=== PATIENT | male | born 1970 | race Caucasian/White ===

== ENCOUNTER 2019-07-26 11:52 | Emergency (ER) | payer OTHER ==
[~2019-07-26] VITALS: Ht 190.5 cm; Wt 92.0 kg
[~2019-07-26 11:52] MED LIST: BETA300T PO; HYDR200T71 PO; PHEN30CA PO; ZONI25CA25 PO
[2019-07-26] MEDS ORDERED: CONTRAST GIVEN MC PRN (12:30)
[2019-07-26] MEDS ORDERED: IOHEXOL 300 MG/ML 75 ML VIAL. IV ONE (12:30)
[2019-07-26 12:57] LABS: BASO # 0.1 x10^3/uL (0.0-0.2); BASO % 1 % (0-3); EOS # 0.1 x10^3/uL (0.0-0.7); EOS % 1 % (0-3); HEMATOCRIT 46.4 % (39.0-53.0); HEMOGLOBIN 15.6 g/dL (13.0-17.5); LYMPH # 0.7 x10^3/uL (1.0-4.8); LYMPH % 7 % (24-48); MEAN CORPUSCULAR HEMOGLOBIN 30 pg (25-35); MEAN CORPUSCULAR HGB CONC 34 g/dL (31-37); MEAN CORPUSCULAR VOLUME 89 fL (79-100); MONO # 1.2 x10^3/uL (0.0-1.1); MONO % 12 % (0-9); NEUT # 8.7 x10^3uL (1.8-7.7); NEUT % 81 % (31-73); PLATELET COUNT 220 x10^3/uL (140-400); RED CELL DISTRIBUTION WIDTH 13.5 % (11.5-14.5); WHITE BLOOD COUNT 10.8 x10^3/uL (4.0-11.0)
[2019-07-26 13:09] LABS: CALCIUM 9.3 mg/dL (8.5-10.1); CREATININE 0.9 mg/dL (0.7-1.3); POTASSIUM 3.6 mmol/L (3.5-5.1)
[2019-07-26 13:15] LABS: ALBUMIN/GLOBULIN RATIO 0.9 (1.0-1.7); TOTAL BILIRUBIN 0.3 mg/dL (0.2-1.0); TOTAL PROTEIN 8.3 g/dL (6.4-8.2)
--- NOTE | 2019-07-26 13:30 | RAD ---
Examination: CT SOFT TISSUE NECK W/CONTRAST History: Facial abscess Comparison/Correlation: 03/29/2012 CTA of the chest Findings: Axial images of the neck were obtained following IV contrast. Sagittal and coronal reformatted images were provided. Partially visualized paranasal sinuses and mastoid air cells are unremarkable. There is a phlegmon identified involving the left lateral pharyngeal space measuring 2.2 cm transverse by 1.1 cm anteroposterior by 1.6 longitudinal. It is best seen on axial image 21 of series 2, coronal image 27, and sagittal image 23. External auditory canals are unremarkable. There are small bilateral upper jugular chain lymph nodes. Bony structures are intact. Postoperative cervical spine intervertebral disc space material at C5-6 is present. Mild disc space narrowing at multiple levels of the cervical spine noted. Temporomandibular joints are intact. Transversely oriented pins or screws are present at the mandibular ramus bilaterally. Mild mucosal thickening of ethmoid air cells is noted. Minimal opacification of the right maxillary sinus noted. Fatty replacement of the submandibular and parotid glands is noted. Current false cords are stable and symmetric. Epiglottis is normal. Benign-appearing nodular involvement of the thyroid gland is present. Nonenlarged left level 2A lymph node is present with a short axis diameter of 0.7 cm. Foci of small groundglass opacities involving the lung apices is noted. The largest of these on the right on axial image 83-84 measuring up to 1.1 cm x 0.8 cm. Largest of these at the left is present adjacent to the superior mediastinum on axial images 78 through 87. This measures 2.6 longitudinal by 1.2 cm transverse by 1.8 cm anteroposterior. Solid component within the superomedial aspect of this measuring up to 0.9 cm x longitudinal 0.5 cm x 0.8 cm. Impression: Left lateral pharyngeal space phlegmon. Groundglass opacities involving upper lung mccartney are new since prior CTA of the chest dated 03/29/2012. Correlate for underlying infectious or other etiologies. Solid component within the largest of the left apical opacities is noted. Neoplastic involvement of this particular ground glass opacity is questioned considering its solid component warranting continued follow-up. Follow-up CT chest with contrast is recommended for more complete assessment of the lung mccartney. PQRS Compliance Statement: One or more of the following individualized dose reduction techniques were utilized for this examination: 1. Automated exposure control 2. Adjustment of the mA and/or kV according to patient size 3. Use of iterative reconstruction technique Electronically signed by: Andrea Sanches MD (07/26/2019 1:27 PM) [facility]
--- NOTE | 2019-07-26 13:52 | PHYS DOC ---
Past History Past Medical History: Other Additional Past Medical Histor: sjrogens, epilepsy Alcohol Use: None General Adult EDM: Chief Complaint: WEAKNESS/GENERALIZED HPI: HPI: Patient is a 49-year-old male with no significant past medical history who presents with a 1 to 2-week history of swelling behind his left jaw. He states he has been to his primary care physician a couple of times and been started on antibiotics. They thought that this may have just been swollen lymph node. He has noticed that it seems to be moving his jaw forward. The pain has increased on the left side of his face including his neck he states the pain stops at the midline. He has not had any difficulty swallowing does have some pain with chewing. He saw his primary care doctor again today and she sent him down here for further evaluation. [] Review of Systems: Review of Systems: Constitutional: Reports subjective fever at home Eyes: Denies change in visual acuity HENT: Denies nasal congestion swollen jaw left side Respiratory: Denies cough or shortness of breath Cardiovascular: Denies chest pain or edema GI: Denies abdominal pain, nausea, vomiting, bloody stools or diarrhea : Denies dysuria Musculoskeletal: Denies back pain or joint pain Integument: Denies rash Neurologic: Denies headache, focal weakness or sensory changes Endocrine: Denies polyuria or polydipsia Lymphatic: Reports swollen lymph nodes around his neck Psychiatric: Denies depression or anxiety Heart Score: Risk Factors: Risk Factors: DM, Current or recent (<one month) smoker, HTN, HLP, family history of CAD, obesity. Risk Scores: Score 0 - 3: 2.5% MACE over next 6 weeks - Discharge Home Score 4 - 6: 20.3% MACE over next 6 weeks - Admit for Clinical Observation Score 7 - 10: 72.7% MACE over next 6 weeks - Early Invasive Strategies Current Medications: Current Meds: Current Medications Medications (Trade) Dose Ordered Sig/Ede Start Time Stop Time Status Last Admin Dose Admin Info (Do NOT chart on this entry -- for MONITORING) 1 each PRN DAILY PRN 07/26/19 12:30 07/28/19 12:29 Iohexol (Omnipaque 300 Mg/ml) 75 ml 1X ONCE 07/26/19 12:30 07/26/19 12:31 DC 07/26/19 12:48 75 ML Allergies: Allergies: Allergies Coded Allergies Type Severity Reaction Last Updated Verified morphine Allergy Intermediate Nausea and Vomiting 11/27/15 Yes lamotrigine Allergy Unknown Unknown 11/27/15 Yes Physical Exam: PE: Constitutional: Well developed, well nourished, appears uncomfortable, non-toxic appearance. [] HENT: Normocephalic, atraumatic, bilateral external ears normal, oropharynx moist, no oral exudates, nose normal. [] Eyes: PERRLA, EOMI, conjunctiva normal, no discharge. [] Neck: The left neck up into the pre-mandibular area is swollen and very tender to palp [] Cardiovascular:Heart rate regular rhythm, no murmur [] Lungs & Thorax: Bilateral breath sounds clear to auscultation [] Abdomen: Bowel sounds normal, soft, no tenderness, no masses, no pulsatile masses. [] Skin: Warm, dry, no erythema, no rash. [] Back: No tenderness, no CVA tenderness. [] Extremities: No tenderness, no cyanosis, no clubbing, ROM intact, no edema. [] Neurologic: Alert and oriented X 3, normal motor function, normal sensory function, no focal deficits noted. [] Psychologic: Anxious [] Current Patient Data: Labs: Laboratory Tests Test 07/26/19 12:37 White Blood Count 10.8 x10^3/uL (4.0-11.0) Red Blood Count 5.20 x10^6/uL (4.30-5.70) Hemoglobin 15.6 g/dL (13.0-17.5) Hematocrit 46.4 % (39.0-53.0) Mean Corpuscular Volume 89 fL (79-100) Mean Corpuscular Hemoglobin 30 pg (25-35) Mean Corpuscular Hemoglobin Concent 34 g/dL (31-37) Red Cell Distribution Width 13.5 % (11.5-14.5) Platelet Count 220 x10^3/uL (140-400) Neutrophils (%) (Auto) 81 % (31-73) H Lymphocytes (%) (Auto) 7 % (24-48) L Monocytes (%) (Auto) 12 % (0-9) H Eosinophils (%) (Auto) 1 % (0-3) Basophils (%) (Auto) 1 % (0-3) Neutrophils # (Auto) 8.7 x10^3uL (1.8-7.7) H Lymphocytes # (Auto) 0.7 x10^3/uL (1.0-4.8) L Monocytes # (Auto) 1.2 x10^3/uL (0.0-1.1) H Eosinophils # (Auto) 0.1 x10^3/uL (0.0-0.7) Basophils # (Auto) 0.1 x10^3/uL (0.0-0.2) Prothrombin Time 9.8 SEC (9.4-11.4) Prothrombin Time INR 0.9 (0.9-1.1) Sodium Level 139 mmol/L (136-145) Potassium Level 3.6 mmol/L (3.5-5.1) Chloride Level 101 mmol/L (98-107) Carbon Dioxide Level 26 mmol/L (21-32) Anion Gap 12 (6-14) Blood Urea Nitrogen 12 mg/dL (8-26) Creatinine 0.9 mg/dL (0.7-1.3) Estimated GFR (Cockcroft-Gault) 89.0 BUN/Creatinine Ratio 13 (6-20) Glucose Level 102 mg/dL (70-99) H Lactic Acid Level 0.8 mmol/L (0.4-2.0) Calcium Level 9.3 mg/dL (8.5-10.1) Total Bilirubin 0.3 mg/dL (0.2-1.0) Aspartate Amino Transferase (AST) 13 U/L (15-37) L Alanine Aminotransferase (ALT) 24 U/L (16-63) Alkaline Phosphatase 84 U/L (46-116) Total Protein 8.3 g/dL (6.4-8.2) H Albumin 4.0 g/dL (3.4-5.0) Albumin/Globulin Ratio 0.9 (1.0-1.7) L Vital Signs: Vital Signs Date Time Temp Pulse Resp B/P (MAP) Pulse Ox O2 Delivery O2 Flow Rate FiO2 07/26/19 12:17 99.0 85 18 136/91 (106) 99 Room Air EKG: EKG: [] Radiology/Procedures: Radiology/Procedures: [] Impressions: REASON: facial abscess PROCEDURE: CT SOFT TISSUE NECK W/CONTRAST Examination: CT SOFT TISSUE NECK W/CONTRAST History: Facial abscess Comparison/Correlation: 03/29/2012 CTA of the chest Findings: Axial images of the neck were obtained following IV contrast. Sagittal and coronal reformatted images were provided. Partially visualized paranasal sinuses and mastoid air cells are unremarkable. There is a phlegmon identified involving the left lateral pharyngeal space measuring 2.2 cm transverse by 1.1 cm anteroposterior by 1.6 longitudinal. It is best seen on axial image 21 of series 2, coronal image 27, and sagittal image 23. External auditory canals are unremarkable. There are small bilateral upper jugular chain lymph nodes. Bony structures are intact. Postoperative cervical spine intervertebral disc space material at C5-6 is present. Mild disc space narrowing at multiple levels of the cervical spine noted. Temporomandibular joints are intact. Transversely oriented pins or screws are present at the mandibular ramus bilaterally. Mild mucosal thickening of ethmoid air cells is noted. Minimal opacification of the right maxillary sinus noted. Fatty replacement of the submandibular and parotid glands is noted. Current false cords are stable and symmetric. Epiglottis is normal. Benign-appearing nodular involvement of the thyroid gland is present. Nonenlarged left level 2A lymph node is present with a short axis diameter of 0.7 cm. Foci of small groundglass opacities involving the lung apices is noted. The largest of these on the right on axial image 83-84 measuring up to 1.1 cm x 0.8 cm. Largest of these at the left is present adjacent to the superior mediastinum on axial images 78 through 87. This measures 2.6 longitudinal by 1.2 cm transverse by 1.8 cm anteroposterior. Solid component within the superomedial aspect of this measuring up to 0.9 cm x longitudinal 0.5 cm x 0.8 cm. Impression: Left lateral pharyngeal space phlegmon. Groundglass opacities involving upper lung mccartney are new since prior CTA of the chest dated 03/29/2012. Correlate for underlying infectious or other etiologies. Solid component within the largest of the left apical opacities is noted. Neoplastic involvement of this particular ground glass opacity is questioned considering its solid component warranting continued follow-up. Follow-up CT chest with contrast is recommended for more complete assessment of the lung mccartney. Course & Med Decision Making: Course & Med Decision Making Pertinent Labs and Imaging studies reviewed. (See chart for details) [ED course: Evaluation reveals a 49-year-old male with a concerning swollen area on the left neck and mandibular area. CT scan shows a pharyngeal space phlegmon and it also showed some groundglass in the upper lobes of both lungs and on the left apex there was concern for a malignancy. I discussed these findings with the patient and determine the best course of action would be to transfer the patient for ENT evaluation to [facility]] Curtis Disclaimer: Curtis Disclaimer: This electronic medical record was generated, in whole or in part, using a voice recognition dictation system. Departure Departure: Impression: Primary Impression: Pharyngeal mass Disposition: 05 TRANSFER OTHER Condition: STABLE Referrals: VANESSA LI (PCP) ISAURA VICKERS DO Jul 26, 2019 13:52
[2019-07-26 15:28] VITALS: BP 130/76
== END 2019-07-26 15:50 | disposition short-term general hospital (02) ==
LOC: ER 11:52
DX: J39.0 Retropharyngeal and parapharyngeal abscess (principal); R68.84 Jaw pain; R50.9 Fever, unspecified; Z20.828 Contact with and (suspected) exposure to other viral communicable diseases; G40.802 Other epilepsy, not intractable, without status epilepticus; Z88.6 Allergy status to analgesic agent; Z88.8 Allergy status to other drugs, medicaments and biological substances
CPT/HCPCS: 36415; 70491; 80053; 83605; 85025; 85610; 87040; 87635; 99285; Q9967